=== PATIENT | female | born 1935 | race Caucasian/White ===

== ENCOUNTER → 2017-12-01 | Outpatient (CLI) | payer OTHER ==
[~2017-12-01] MED LIST: ACTOS; AMOCLA875 PO; Aspirin EC81 MG PO; CHOLESTEROL MED; CRANBERRY PLUS1 EAC1 PO; Calcium + Vita1 EACH PO; DIAZ2 PO; GEMF600 PO; GLYB1.5 PO; GLYB2.5 PO; HYDACE5 PO; HYDACE5325 PO; METF500 PO; METFORMIN; OXYACE5T PO; OXYB5 PO; Omega 3 Fish O1 EACH PO; PIOG45 PO; PROM25 PO; RXHYD5325 PO; TRAM50 PO
== END | disposition home or self-care (01) ==
LOC: LAB 16:34
DX: N39.0 Urinary tract infection, site not specified (principal); R30.0 Dysuria
CPT/HCPCS: 87077; 87086; 87186

== ENCOUNTER → 2018-02-09 | Outpatient (CLI) | payer OTHER | LOC: LAB SHORT 12:52 → LAB 12:52 | DX: R35.0 Frequency of micturition (principal); R30.0 Dysuria | CPT/HCPCS: 87077; 87086; 87186 ==

== ENCOUNTER → 2018-05-08 | Outpatient (CLI) | payer OTHER | END | disposition home or self-care (01) | LOC: LAB SHORT 17:04 → LAB 17:04 | DX: R30.0 Dysuria (principal); R35.0 Frequency of micturition | CPT/HCPCS: 87077; 87086; 87186 ==

== ENCOUNTER → 2018-07-10 | Outpatient (CLI) | payer OTHER | END | disposition home or self-care (01) | LOC: LAB 16:14 → LAB SHORT 16:14 | DX: R30.0 Dysuria (principal); R35.0 Frequency of micturition | CPT/HCPCS: 87077; 87086; 87186 ==

== ENCOUNTER → 2019-02-10 | Outpatient (CLI) | payer OTHER | END | disposition home or self-care (01) | LOC: LAB 16:52 → LAB SHORT 16:52 | DX: R30.0 Dysuria (principal) | CPT/HCPCS: 87077; 87086; 87186 ==

== ENCOUNTER 2019-03-04 10:26 | Day surgery (SDC) | payer OTHER ==
[~2019-03-04] VITALS: Ht 157.5 cm; Wt 67.4 kg
[~2019-03-04 10:26] MED LIST changes: +Aspirin EC81 MG; +CALCIUM + D3 E1 EACH PO; +CRANBERRY250 MG; +Glyburide5 MG PO; +Lisinopril2.5 MG PO; +METF500C PO; +Omega 3 1,0001 EACH PO; +Vitamin C100 M1; +ZYRTEC10 M1 PO
== END 2019-03-04 12:45 | disposition home or self-care (01) ==
LOC: ORSCSDS 10:26
PROVIDERS: Surgery
PROC: 0DBK8ZX Excision of Ascending Colon, Via Natural or Artificial Opening Endoscopic, Diagnostic (ICD-10-PCS; principal; 2019-03-04 11:45)
PROC: 0DBP8ZX Excision of Rectum, Via Natural or Artificial Opening Endoscopic, Diagnostic (ICD-10-PCS; principal; 2019-03-04 11:45)
PROC: 0DBN8ZX Excision of Sigmoid Colon, Via Natural or Artificial Opening Endoscopic, Diagnostic (ICD-10-PCS; principal; 2019-03-04 11:45)
DX: Z12.11 Encounter for screening for malignant neoplasm of colon (principal); Z86.010 Personal history of colon polyps; D12.2 Benign neoplasm of ascending colon; D12.5 Benign neoplasm of sigmoid colon; K62.1 Rectal polyp; I10 Essential (primary) hypertension; E11.9 Type 2 diabetes mellitus without complications; Z87.891 Personal history of nicotine dependence; Z79.899 Other long term (current) drug therapy
CPT/HCPCS: 82947; 88305; J2405; J2704; J7120

== ENCOUNTER → 2019-05-05 | Outpatient (CLI) | payer OTHER | END | disposition home or self-care (01) | LOC: LAB SHORT 11:15 → LAB 11:15 | DX: R30.0 Dysuria (principal) | CPT/HCPCS: 87077; 87086; 87186 ==

== ENCOUNTER 2021-06-12 08:20 | Day surgery (SDC) | payer OTHER ==
[~2021-06-12] VITALS: Ht 160 cm; Wt 66.0 kg
[~2021-06-12 08:20] MED LIST changes: -Aspirin EC81 MG; -CRANBERRY250 MG; +Cranberry400 MG PO; +FAMO20 PO; +METO25ER PO; -Vitamin C100 M1; +Vitamin C100 M1 PO
--- NOTE | 2021-06-12 11:52 | NUR ---
PT DAUGHTER (BETHEL) NOTIFIED OF PLAN OF CARE. PT AWAITING PROCEDURE D/T AN EMERGENT CASE IN PROCESS. WILL KEEP DAUGHTER INFORMED. PT SLEEPING AT THIS TIME. NADN. VSS. CALL LIGHT WITHIN REACH.
--- NOTE | 2021-06-12 13:15 | NUR ---
PT TO [employer]CEL POST CLERK FOR CONONARY ANGIOGRAM. UPDATED PATIENT DAUGHTER WITH PLAN OF CARE.
--- NOTE | 2021-06-12 16:52 | NUR ---
BP HAS BEEN CONSISTENTLY ELEVATED 170'S/90'S. DR ZOE AND ORDERS RECEIVED, WILL CONTINUE TO MONITOR.
--- NOTE | 2021-06-12 17:05 | NUR ---
BP DOWN TO 140'S/60'S AT THIS TIME AFTER PO AND IV BP MEDS. UP TO BATHROOM.
--- NOTE | 2021-06-12 17:21 | NUR ---
PT RETURNED FROM BATHROOM, GROIN SITE STABLE. ASSIST NEEDED TO GET DRESSED. SALINE LOCK REMOVED WITH CATHETER INTACT. DISCHARGE INSTRUCTIONS REVIEWED WITH PT, VERBALIZES UNDERSTANDING OF INSTRUCTIONS. WAITING FOR DAUGHTER AT THIS TIME.
--- NOTE | 2021-06-12 17:29 | NUR ---
DAUGHTER HERE, DISCHARGE GONE OVER WITH DAUGHTER WELL. PT TOPRIVATE VEHICLE PER W/C WITH DAUGHTER.
== END 2021-06-12 17:30 | disposition home or self-care (01) ==
LOC: MHTC 08:20
DX: I20.8 Other forms of angina pectoris (principal); I35.0 Nonrheumatic aortic (valve) stenosis; R06.02 Shortness of breath; E78.5 Hyperlipidemia, unspecified; E11.319 Type 2 diabetes mellitus with unspecified diabetic retinopathy without macular edema; I44.4 Left anterior fascicular block; I11.0 Hypertensive heart disease with heart failure; I50.9 Heart failure, unspecified; Z79.84 Long term (current) use of oral hypoglycemic drugs; Z87.891 Personal history of nicotine dependence; Z88.8 Allergy status to other drugs, medicaments and biological substances
CPT/HCPCS: 93005; 93010; 93460; 99152; 99153; A9270; C1769; C1894; J1200; J1644; J2250; J3010; J7030; J7050; Q9967

== ENCOUNTER 2021-08-19 17:44 | Emergency (ER) | payer OTHER ==
[~2021-08-19] VITALS: Ht 160 cm; Wt 68.0 kg
[2021-08-19 18:24] LABS: BASOPHILS ABSOLUTE AUTO 0.03 K/mm3 (0.00-0.23); BASOPHILS PERCENT AUTO 0 % (0-2); EOSINOPHILS ABSOLUTE AUTO 0.02 K/mm3 (0.00-0.68); EOSINOPHILS PERCENT AUTO 0 % (0-6); Hematocrit 41.3 % (33.0-51.0); Hemoglobin 14.2 g/dL (11.5-16.0); IMMATURE GRAN ABSOLUTE AUTO 0.06 K/mm3 (0.00-0.10); IMMATURE GRAN PERCENT AUTO 1 % (0-1); LYMPHOCYTES ABSOLUTE AUTO 1.61 K/mm3 (0.84-5.20); LYMPHOCYTES PERCENT AUTO 12 % (21-46); MONOCYTES ABSOLUTE AUTO 0.77 K/mm3 (0.16-1.47); MONOCYTES PERCENT AUTO 6 % (4-13); Mean Corpuscular HGB 31.1 pg (26.0-34.0); Mean Corpuscular HGB Conc 34.4 g/dL (31.5-36.5); Mean Corpuscular Volume 90 fL (80-100); Mean Platelet Volume 9.5 fL (9.1-12.4); NEUTROPHILS ABSOLUTE AUTO 10.59 K/mm3 (1.96-9.15); NEUTROPHILS PERCENT AUTO 81 % (41-73); Platelet Count 498 K/mm3 (150-400); RDW Coefficient Variation 12.2 % (11.7-14.2); RDW Standard Deviation 40.3 fL (35.1-46.3); Red Blood Cell Count 4.57 M/mm3 (3.80-5.20); White Blood Cell Count 13.08 K/mm3 (4.00-11.30)
[2021-08-19 18:45] LABS: Alanine Aminotransfer (ALT/SGP 13 U/L (12-78); Albumin, Blood 2.9 g/dL (3.4-5.0); Albumin/Globulin Ratio 0.7 (0.8-1.8); Alk Phos 86 U/L (50-136); Anion Gap 14 mmol/L (6-16); Aspartate Aminotrans (AST/SGOT 20 U/L (12-37); Bilirubin, Total 0.4 mg/dL (0.1-1.0); Blood Urea Nitrogen 34 mg/dL (8-24); Bun/Creatinine Ratio 46.1 (12.0-20.0); CO2, Blood 18 mmol/L (21-32); Calcium, Blood 10.5 mg/dL (8.5-10.1); Chloride, Blood 106 mmol/L (98-108); Creatinine, Blood 0.74 mg/dL (0.40-1.00); Globulin, Blood 4.4 g/dL (2.2-4.0); Glomerular Filtration Rate >60 (60-); Glucose, Blood 209 mg/dL (70-99); Potassium, Blood 5.1 mmol/L (3.5-5.5); Sodium, Blood 138 mmol/L (136-145); Total Protein, Blood 7.3 g/dL (6.4-8.2)
[2021-08-19] MEDS ORDERED: CEFDINIR300 M4 PO (19:16)
[2021-08-19 19:31] LABS: Source, Urine Clean Catch
[2021-08-19 19:38] LABS: Appearance, Urine Cloudy (Clear); Bilirubin, Urine Neg (Neg); Blood, Urine 5+ (Neg); Color, Urine Yellow (P-Yellow); Glucose Qualitative, Urine Neg (Neg); Ketones, Urine Neg (Neg); Leukocyte Esterase, Urine 3+ (Neg); Nitrite, Urine Pos (Neg); Protein, Urine 2+ (Neg); Specific Gravity, Urine 1.025 (1.003-1.022); Urobilinogen, Urine NORM (Normal)
[2021-08-19 19:54] LABS: Red Blood Cells, Urine 50-100 /hpf (0-2); White Blood Cells, Urine TNTC /hpf (0-5)
[2021-08-19 19:55] LABS: Bacteria Many /hpf; Hyaline Casts 0-2 /lpf (0-2); Squamous Epithelial Cells Few /hpf (Few); Transitional Epithelial Cells Rare /hpf (0-Rare)
[2021-08-19] MEDS ORDERED: CEPH500 PO (20:56)
== END 2021-08-19 22:00 | disposition home or self-care (01) ==
LOC: ER 17:44
PROVIDERS: Physician Assistant
DX: N39.0 Urinary tract infection, site not specified (principal); E11.9 Type 2 diabetes mellitus without complications; E78.5 Hyperlipidemia, unspecified; Z87.891 Personal history of nicotine dependence; Z88.2 Allergy status to sulfonamides; Z79.899 Other long term (current) drug therapy
CPT/HCPCS: 36415; 80053; 81001; 83605; 85025; 87077; 87086; 87186; 93005; 93010; 96365; 96375; 99284-25; A9270; J0690; J2405; J7030

== ENCOUNTER → 2021-09-29 | Outpatient (CLI) | payer OTHER ==
[~2021-09-29] MED LIST changes: +CEFDINIR300 M4 PO; +CEPH500 PO; +LEVFLO500 PO; +Norco 5-325 Ta1 EACH PO; +ONDA4ODT MM
== END | disposition home or self-care (01) ==
LOC: LAB SHORT 10:39
DX: N20.0 Calculus of kidney (principal)
CPT/HCPCS: 81050

== ENCOUNTER → 2022-04-03 | Outpatient (CLI) | payer OTHER | END | disposition home or self-care (01) | LOC: LAB SHORT 17:16 → LAB 17:16 | DX: R30.9 Painful micturition, unspecified (principal) | CPT/HCPCS: 87077; 87086; 87186 ==

== ENCOUNTER → 2022-05-16 | Outpatient (CLI) | payer OTHER ==
[2022-05-16 12:31] LABS: Albumin, Blood 3.6 g/dL (3.4-5.0); Anion Gap 7 mmol/L (6-16); Blood Urea Nitrogen 17 mg/dL (8-24); Bun/Creatinine Ratio 22.1 (12.0-20.0); CO2, Blood 25 mmol/L (21-32); Calcium, Blood 10.1 mg/dL (8.5-10.1); Chloride, Blood 108 mmol/L (98-108); Creatinine, Blood 0.77 mg/dL (0.40-1.00); Glomerular Filtration Rate 74 (60-); Glucose, Blood 152 mg/dL (70-99); Phosphorus, Blood 3.9 mg/dL (2.5-4.9); Potassium, Blood 4.5 mmol/L (3.5-5.5); Sodium, Blood 140 mmol/L (136-145)
== END | disposition home or self-care (01) ==
LOC: LAB SHORT 10:32 → LAB 10:32 → LAB FUT 11-27 14:45
PROVIDERS: Internal Medicine Nephrology
DX: N18.2 Chronic kidney disease, stage 2 (mild) (principal); D63.1 Anemia in chronic kidney disease
CPT/HCPCS: 36415; 80069; 85018

== ENCOUNTER → 2022-06-29 | Outpatient (CLI) | payer OTHER | END | disposition home or self-care (01) | LOC: LAB SHORT 14:18 → LAB 14:18 | DX: R30.0 Dysuria (principal) | CPT/HCPCS: 87077; 87086; 87186 ==

== ENCOUNTER → 2022-07-29 | Outpatient (CLI) | payer OTHER | LOC: LAB 18:11 → LAB SHORT 18:11 | DX: R73.9 Hyperglycemia, unspecified (principal); N39.0 Urinary tract infection, site not specified | CPT/HCPCS: 87086; 87106 ==

== ENCOUNTER → 2022-07-29 | Outpatient (CLI) | payer OTHER ==
[2022-07-29 18:36] LABS: Albumin, Blood 3.1 g/dL (3.4-5.0); Albumin/Globulin Ratio 0.7 (0.8-1.8); Bilirubin, Total 0.3 mg/dL (0.1-1.0); Bun/Creatinine Ratio 18.9 (12.0-20.0); Calcium, Blood 9.6 mg/dL (8.5-10.1); Creatinine, Blood 1.06 mg/dL (0.40-1.00); Globulin, Blood 4.3 g/dL (2.2-4.0); Potassium, Blood 4.3 mmol/L (3.5-5.5); Total Protein, Blood 7.4 g/dL (6.4-8.2)
== END | disposition home or self-care (01) ==
LOC: LAB SHORT 18:17
PROVIDERS: Physician Assistant
DX: R73.9 Hyperglycemia, unspecified (principal)
CPT/HCPCS: 80053

== ENCOUNTER → 2022-12-20 | Outpatient (CLI) | payer OTHER | END | disposition home or self-care (01) | LOC: LAB SHORT 16:09 → LAB 16:09 | DX: N20.0 Calculus of kidney (principal) | CPT/HCPCS: 81050 ==

== ENCOUNTER → 2023-05-01 | Outpatient (CLI) | payer OTHER | END | disposition home or self-care (01) | LOC: LAB SHORT 10:00 → LAB 10:00 | DX: N20.0 Calculus of kidney (principal) | CPT/HCPCS: 81050 ==

== ENCOUNTER → 2023-08-19 | Outpatient (CLI) | payer OTHER ==
[2023-08-19 16:35] LABS: Source, Urine Clean Catch
[2023-08-19 18:24] LABS: Bacteria Many /hpf; Red Blood Cells, Urine 0-2 /hpf (0-2); Squamous Epithelial Cells Few /hpf (Few)
== END ==
LOC: LAB 16:31 → LAB SHORT 16:31
PROVIDERS: Family Medicine
DX: R30.0 Dysuria (principal)
CPT/HCPCS: 81015; 87077; 87086; 87186

== ENCOUNTER → 2023-09-09 | Outpatient (CLI) | payer OTHER | END | disposition home or self-care (01) | LOC: LAB SHORT 10:00 → LAB 10:00 | DX: N20.0 Calculus of kidney (principal) | CPT/HCPCS: 81050 ==

== ENCOUNTER → 2024-03-15 | Outpatient (CLI) | payer OTHER | END | disposition home or self-care (01) | LOC: LAB 17:08 → EDBD 17:08 → LAB SHORT 17:08 | DX: R30.0 Dysuria (principal) | CPT/HCPCS: 87077; 87086; 87186 ==